=== PATIENT | male | born 1965 | race Caucasian/White ===

== ENCOUNTER 2021-01-08 04:50 | Day surgery (SDC) | payer OTHER | END 2021-01-08 10:40 | disposition home or self-care (01) | LOC: CIR.AMB 04:50 | PROVIDERS: ATTEND Specialist | DX: D17.1 Benign lipomatous neoplasm of skin and subcutaneous tissue of trunk (principal) ==

== ENCOUNTER 2023-12-07 15:47 | Emergency (ER) | payer OTHER ==
[~2023-12-07] VITALS: Ht 182.9 cm; Wt 122.5 kg
[2023-12-07] MEDS ORDERED: FUROsemide 40 MG/4 ML VIAL IV ONE (17:15)
[2023-12-07] MEDS ORDERED: CLONIDINE HCL 0.1 MG TABLET PO ONE ×2 (17:15→17:50)
[2023-12-07] MEDS ORDERED: ENALAPRILAT DIHYDRATE 2.5 MG/2 ML VIAL IV ONE (17:15)
[2023-12-07 17:25] LABS: HEMATOCRIT 48.7 % (39.0-48.0); HEMOGLOBIN 16.7 g/dL (13-16.00); MEAN CELL VOLUME 78.1 fL (80.0-100.00); MEAN CORPUSCULAR HEMOGLOBIN 26.8 pg (27.00-32.0); MEAN CORPUSCULAR HGB CONC 34.3 g/dl (32.0-36.0); PLATELET COUNT 323 K/uL (150-450); RED BLOOD COUNT 6.24 M/uL (4.00-6.00)
[2023-12-07 17:39] LABS: INR 1.13; PARTIAL THROMBOPLASTIN TIME 26.5 SECONDS (22.0-34.0); PROTHROMBIN TIME 12.2 SECONDS (9.0-11.5)
[2023-12-07 17:44] LABS: ALBUMIN 3.7 gm/dL (3.4-5.0); BILIRUBIN TOTAL 0.73 mg/dL (0.3-1.2); CALCIUM 9.5 mg/dL (8.5-10.1); CREATININE SERUM 1.21 mg/dL (0.70-1.30); GFR 61.81; GLOBULINA 3.8 G/DL (2.4-3.5); POTASSIUM 3.65 mEq/L (3.5-5.1); TOTAL PROTEIN 7.5 gm/dL (6.4-8.2)
[2023-12-07] MEDS ORDERED: FUROsemide 40 MG/4 ML VIAL ONE (17:50)
[2023-12-07] MEDS ORDERED: ENALAPRILAT DIHYDRATE 1.25 MG/ML VIAL IV ONE (17:50)
[2023-12-07] MEDS ORDERED: LOSARTAN-HCTZ1 EACH PO (21:09)
[2023-12-07] MEDS ORDERED: METFORMIN HCL500 M3 PO (21:09)
== END 2023-12-07 21:28 | disposition home or self-care (01) ==
LOC: ER 15:49
PROVIDERS: General Practice
DX: I16.9 Hypertensive crisis, unspecified (principal); R73.9 Hyperglycemia, unspecified